=== PATIENT | female | born 1965 | race Caucasian/White ===

== ENCOUNTER 2023-06-08 15:13 | Emergency (ER) | payer BC, SELFPAY ==
[2023-06-08 15:20] VITALS: BP 123/82; PULSE 65; RESP 16; TEMP 36.7; O2SAT 100
--- NOTE | 2023-06-08 16:15 | ED.FEMALEGU ---
HPI - Female Genitourinary General Chief complaint: Urogenital-Female Stated complaint: Urinary Problem Time Seen by Provider: 06/08/23 16:05 Source: patient, RN notes reviewed and old records reviewed Mode of arrival: ambulatory Limitations: no limitations History of Present Illness HPI Narrative: 57 year old female who presents to [facility] care with complaints of 7-10 days of urinary burning, frequency and urgency which increased since yesterday with suprapubic pain and lower back pain. Patient reports that she has not had any fever,chills or sweats, denies any nausea or vomiting.Patient reports that she did take AZO at the beginning or the week for her symptoms. MD elicited complaint: UTI Pertinent past history: other (past UTI) Onset (ago): day(s) () Location of symptoms: perineum, suprapubic and low back Severity scale (1-10): 5 Quality of pain: aching Vaginal discharge: none Related Data Home Medications Medication Instructions Recorded Confirmed amlodipine 5 mg tablet 5 mg PO DIRECTED 06/08/23 06/08/23 carvedilol 6.25 mg tablet 6.25 mg 06/08/23 lisinopril 20 1 tablet PO DIRECTED 06/08/23 06/08/23 mg-hydrochlorothiazide 12.5 mg tablet methimazole 10 mg tablet 10 mg PO DIRECTED 06/08/23 06/08/23 methocarbamol 500 mg tablet 500 mg PO DIRECTED 06/08/23 06/08/23 rosuvastatin 5 mg tablet 5 mg PO DIRECTED 06/08/23 06/08/23 Allergies Allergy/AdvReac Type Severity Reaction Status Date / Time cefixime [From Suprax] AdvReac Nausea and Verified 06/08/23 15:39 Vomiting erythromycin base AdvReac Nausea and Verified 06/08/23 15:39 Vomiting etretinate [From Tegison] AdvReac Nausea and Verified 06/08/23 15:39 Vomiting Sulfa (Sulfonamide AdvReac Nausea and Verified 06/08/23 15:39 Antibiotics) Vomiting Review of Systems Review of Systems: CONSTITUTIONAL: Denies fever, chills, or sweats. CARDIOVASCULAR: Denies chest pain, palpitations, or edema. RESPIRATORY: Denies cough or dyspnea. GASTROINTESTINAL: reports some suprapubic pain,denies any nausea, vomiting, or diarrhea. GENITOURINARY: Reports dysuria, frequency, urgency. Denies flank pain or hematuria. SKIN: Denies rash or itching. MUSCULOSKELETAL: Denies back pain or myalgia. Denies CVA tenderness NEUROLOGIC: Denies headache All systems reviewed & are unremarkable except as noted in HPI and below PMFSH Comments At time of signature, agree with nursing past medical, surgical, social and family history. There is no relevant family history pertinent to the presenting complaint Exam Narrative: GENERAL: Well-appearing, well-nourished, and in no acute distress. HEAD: Normocephalic, atraumatic. NECK: Supple. no lymphadenopathy CHEST: Clear to auscultation. No respiratory distress.GILBEROT 100% on room air HEART: Regular rate and rhythm. No murmur heard. Normal peripheral pulses. ABDOMEN: Soft, tender over suprapubic area, nondistended, normal active bowel sounds. No CVA tenderness, states some low back pain EXTREMITIES: Normal range of motion. No edema. SKIN: Warm, dry, no rash. NEURO: No focal deficits. Alert and oriented x3. Course Course Emergency Course: Patient is aware of diagnosis, understands and agrees to treatment plan.? Anticipatory guidance given.? Patient agrees to follow-up as directed and is aware of reasons to seek care at the emergency department. Portions of this record may have been created with voice recognition software Level of Care: Express Care Visit Vital Signs Vital signs: Vital Signs Temperature 36.7 C 06/08/23 15:20 Pulse Rate 65 06/08/23 15:20 Respiratory Rate 16 06/08/23 15:20 Blood Pressure 123/82 06/08/23 15:20 Pulse Oximetry 100 06/08/23 15:20 Oxygen Delivery Room Air 06/08/23 15:20 Temperature 36.7 C 06/08/23 15:20 Pulse Rate 65 06/08/23 15:20 Respiratory Rate 16 06/08/23 15:20 Blood Pressure 123/82 06/08/23 15:20 Pulse Oximetry 100 06/08/23 1
== END 2023-06-08 16:28 | disposition home or self-care (01) ==
PROVIDERS: Emergency Provider Registered Nurse
DX: N39.0 Urinary tract infection, site not specified (principal); E78.00 Pure hypercholesterolemia, unspecified; I10 Essential (primary) hypertension; I25.10 Atherosclerotic heart disease of native coronary artery without angina pectoris; Z95.5 Presence of coronary angioplasty implant and graft; E05.90 Thyrotoxicosis, unspecified without thyrotoxic crisis or storm
CPT/HCPCS: 81003; 87086; 87088; 99213; G0463